=== PATIENT | male | born 1985 ===

== ENCOUNTER 2018-06-28 02:21 | Emergency (ER) | payer BC ==
[2018-06-28 03:04] VITALS: RESP 18
--- NOTE | 2018-06-28 03:09 | ED PDOC ---
HPI: Psych/Substance Abuse Time Seen by Provider: 06/28/18 02:57 Chief Complaint (Nursing): Psychiatric Evaluation Chief Complaint (Provider): crisis eval History Per: Patient Additional Complaint(s): 33-year-old male presents for crisis evaluation. Patient sent a text message to his former significant other threatening to kill himself. Patient states he has no intention of wanting to harm himself or others. He arrives with police for crisis evaluation. Past Medical History Reviewed: Historical Data, Nursing Documentation, Vital Signs Vital Signs: Last Vital Signs Temp 97.9 F 06/28/18 03:01 Pulse 91 H 06/28/18 03:01 Resp 18 06/28/18 03:01 BP 114/72 06/28/18 03:01 Pulse Ox 94 L 06/28/18 03:01 - Medical History PMH: No Chronic Diseases - Surgical History Surgical History: Appendectomy - Family History Family History: States: No Known Family Hx - Living Arrangements Living Arrangements: With Friends/Others - Social History Current smoker - smoking cessation education provided: No Alcohol: None Drugs: Denies - Allergies Allergies/Adverse Reactions: Allergies Allergy/AdvReac Type Severity Reaction Status Date / Time No Known Allergies Allergy Verified 06/28/18 03:05 Review of Systems ROS Statement: Except As Marked, All Systems Reviewed And Found Negative Psych: Positive for: Suicidal ideation Physical Exam - Reviewed Nursing Documentation Reviewed: Yes Vital Signs Reviewed: Yes - Physical Exam Appears: Positive for: Well, Non-toxic, No Acute Distress Skin: Positive for: Normal Color. Negative for: Rash Eye Exam: Positive for: Normal appearance Cardiovascular/Chest: Positive for: Regular Rate, Rhythm Respiratory: Positive for: Normal Breath Sounds. Negative for: Wheezing, Respiratory Distress Extremity: Positive for: Normal ROM Neurologic/Psych: Positive for: Alert, Oriented - ECG O2 Sat by Pulse Oximetry: 94 Pulse Ox Interpretation: Normal Medical Decision Making Medical Decision Makin-year-old male here for crisis evaluation. Plan: Crisis eval As per crisis counselor and psychiatrist consumer insights intern Dr. Mendoza, patient does not meet criteria for admission and is stable for discharge. Disposition - Clinical Impression Clinical Impression: Adjustment disorder - Patient ED Disposition Is Patient to be Admitted: No Counseled Patient/Family Regarding: Need For Followup - Disposition Referrals: [facility] [Outside] Disposition: Routine/Home Disposition Time: 04:03 Condition: STABLE Additional Instructions: Follow up as directed by crisis counselor. Instructions: Adjustment Disorder Forms: [facility] [facility] (Martiniquais)
[2018-06-28 04:15] VITALS: BP 114/64; PULSE 74; TEMP 98.5; O2SAT 95
== END 2018-06-28 04:20 | disposition home or self-care (01) ==
LOC: H.ER 02:21
DX: F43.20 Adjustment disorder, unspecified (principal)

== ENCOUNTER 2019-02-25 08:54 | Emergency (ER) | payer BC ==
[2019-02-25 09:18] VITALS: BP 125/81; PULSE 73; RESP 16; TEMP 98; O2SAT 98
[2019-02-25 09:20] VITALS: BMI 21.4
--- NOTE | 2019-02-25 09:50 | ED PDOC ---
HPI: Dental Pain/Injury Time Seen by Provider: 02/25/19 09:28 Chief Complaint (Nursing): Dental Pain Chief Complaint (Provider): Facial injury History Per: Patient History/Exam Limitations: no limitations Additional Complaint(s): Pt hit R side of face with vacuum while cleaning car today, now with pain to area. Past Medical History Reviewed: Nursing Documentation, Vital Signs Vital Signs: Last Vital Signs Temp 98 F 02/25/19 09:18 Pulse 73 02/25/19 09:18 Resp 16 02/25/19 09:18 BP 125/81 02/25/19 09:18 Pulse Ox 98 02/25/19 09:18 - Medical History PMH: No Chronic Diseases Denies: Hepatitis, HIV, HTN - Surgical History Surgical History: Appendectomy - Family History Family History: States: Unknown Family Hx - Living Arrangements Living Arrangements: With Friends/Others - Social History Current smoker - smoking cessation education provided: No Alcohol: None - Home Medications Home Medications: Ambulatory Orders Medication Instructions Recorded Ibuprofen [Motrin] 600 mg PO Q6H PRN #20 tab 02/25/19 - Allergies Allergies/Adverse Reactions: Allergies Allergy/AdvReac Type Severity Reaction Status Date / Time No Known Allergies Allergy Verified 06/28/18 03:05 Review of Systems Skin: Negative for: Bruising Neurological: Negative for: Headache Physical Exam - Reviewed Nursing Documentation Reviewed: Yes Vital Signs Reviewed: Yes - Physical Exam Appears: Positive for: Well, No Acute Distress Head Exam: Positive for: ATRAUMATIC Skin: Positive for: Normal Color, Warm, Dry Eye Exam: Positive for: Normal appearance, EOMI, PERRL ENT: Positive for: Other (Superficial abrasion to R mucosa (mouth), dentition intact, braces intact, no bleeding, gingiva WNL, minimal edema externally superior to R upper lip) - ECG O2 Sat by Pulse Oximetry: 98 Medical Decision Making Medical Decision Makin yo male with R facial injury. - Motrin Disposition - Clinical Impression Clinical Impression: Facial contusion - Disposition Referrals: [facility] [Outside] Disposition: Routine/Home Disposition Time: 09:50 Condition: STABLE Additional Instructions: FOLLOW-UP WITH YOUR OVEN TECHNICIAN. Prescriptions: Ibuprofen [Motrin] 600 mg PO Q6H PRN #20 tab PRN Reason: Pain, Moderate (4-7) Instructions: Contusion (DC) Forms: [employer] (Eth[place]ian)
== END 2019-02-25 10:12 | disposition home or self-care (01) ==
LOC: SUPCPDRO 08:54 → H.ER 08:54
DX: S00.83XA Contusion of other part of head, initial encounter (principal); W22.8XXA Striking against or struck by other objects, initial encounter; Y92.89 Other specified places as the place of occurrence of the external cause